=== PATIENT | female | born 1980 | race African-American/Black ===

== ENCOUNTER 2020-07-18 20:28 | Emergency (ER) | payer OTHER ==
[~2020-07-18] VITALS: Ht 167.6 cm; Wt 115.0 kg
[2020-07-18 20:58] VITALS: BP 131/80
[2020-07-18] MEDS ORDERED: KETOROLAC 30MG/ML VIAL IV STA (23:41)
[2020-07-19 01:40] LABS: EOSINOPHILS % 2.2 % (0.0-5.0); HEMATOCRIT. 32.9 % (36.0-48.0); HEMOGLOBIN. 9.9 g/dL (12.0-16.0); LYMPHOCYTES % 39.1 % (20.0-50.0); MEAN CORPUSCULAR HEMOGLOBIN 20.8 pg (28.0-32.0); MEAN CORPUSCULAR VOLUME 69.1 fL (81.0-99.0); MEAN PLATELET VOLUME 8.5 fl (7.4-10.4); MONOCYTES % 8.8 % (2.0-8.0); NEUTROPHILS % 48.9 % (40.0-76.0); PLATELET 380 x1000/uL (130-400); RED BLOOD CELL COUNT 4.76 mill/uL (4.2-5.4); RED CELL DISTRIBUTION WIDTH 20.2 % (11.6-14.6)
[2020-07-19 01:54] LABS: CHLORIDE 110 mEq/L (98-107)
[2020-07-19 01:59] LABS: HCG SCREEN NEGATIVE
[2020-07-19 02:13] LABS: CLARITY URINE CLEAR (CLEAR); COLOR URINE YELLOW (YELLOW); KETONES URINE NEGATIVE (NEGATIVE); LEUKOCYTE ESTERASE URINE 2+ (NEGATIVE); NITRITE URINE NEGATIVE (NEGATIVE); OCCULT BLOOD URINE 3+ (NEGATIVE); PROTEIN URINE NEGATIVE (NEGATIVE); SPECIFIC GRAVITY URINE 1.027 (1.005-1.030)
[2020-07-19 02:19] LABS: PLATELET ESTIMATE NORMAL
[2020-07-19] MEDS ORDERED: NITR-87 MT (03:28)
[2020-07-19] MEDS ORDERED: IBUP-2029 MT (03:28)
== END 2020-07-19 06:05 | disposition home or self-care (01) ==
LOC: ER 20:28
DX: N39.0 Urinary tract infection, site not specified (principal); R10.31 Right lower quadrant pain; M79.604 Pain in right leg
CPT/HCPCS: 36415; 74176; 80053; 81003; 81025; 83690; 84703; 85025; 93005; 93971; 96374; 99285; J1885